=== PATIENT | female | born 1990 | race Caucasian/White ===

== ENCOUNTER 2021-03-26 11:52 | Emergency (ER) | payer OTHER ==
[2021-03-26 12:35] VITALS: BP 135/89; PULSE 80; TEMP 98.1; BMI 25.0
[2021-03-26 15:03] LABS: HCG,QUALITATIVE URINE Negative
[2021-03-26 15:04] LABS: EPI CELLS 5 /uL (0-25.1); HYALINE CASTS 0 /uL (0-3.1); URINE APPEARANCE CLEAR; URINE BACTERIA 147 /uL (0-1359); URINE BILIRUBIN NEGATIVE (NEGATIVE); URINE COLOR YELLOW; URINE GLUCOSE (UA) NEGATIVE (NEGATIVE); URINE KETONE NEGATIVE (NEGATIVE); URINE LEUK ESTERASE NEGATIVE (NEGATIVE); URINE NITRITE NEGATIVE (NEGATIVE); URINE PROTEIN NEGATIVE (NEGATIVE); URINE RBC 8 /uL (0-23.9); URINE UROBILINOGEN 0.2 mg/dL (0.2-1.0); URINE WBC 9 /uL (0-25.8)
== END 2021-03-26 15:36 | disposition home or self-care (01) ==
LOC: JER 11:52
DX: R35.0 Frequency of micturition (principal)
CPT/HCPCS: 81003; 84703; 87086; 99283-25

== ENCOUNTER 2022-05-16 04:26 | Day surgery (SDC) | payer OTHER ==
[2022-05-11 15:46] VITALS: BMI 28.7
[2022-05-16] MEDS ORDERED: MIDAZOLAM HCL 2 MG/2 ML SINGLE DOSE VIAL ONE (08:54)
[2022-05-16] MEDS ORDERED: ONDANSETRON 4 MG/2 ML VIAL IVPUSH PRN ×2 (09:09→10:36)
[2022-05-16] MEDS ORDERED: oxyCODONE HCL 5 MG TABLET PO PRN ×2 (09:09→10:36)
[2022-05-16] MEDS ORDERED: LACTATED RINGERS SOLUTION 1,000 ML IV SCH (09:15)
[2022-05-16] MEDS ORDERED: GLYCOPYRROLATE 0.2 MG/1 ML VIAL ONE (10:05)
[2022-05-16] MEDS ORDERED: DEXAMETHASONE SOD PHOSPHATE 4 MG/1 ML VIAL ONE (10:05)
[2022-05-16] MEDS ORDERED: NEOSTIGMINE METHYLSULFATE 0.5 MG/ML - 10 ML MDV ONE (10:05)
[2022-05-16] MEDS ORDERED: KETOROLAC TROMETHAMINE 30 MG/1 ML VIAL ONE (10:05)
[2022-05-16] MEDS ORDERED: LIDOCAINE HCL/PF 2% SDV 5ML VIAL ONE (10:05)
[2022-05-16] MEDS ORDERED: ONDANSETRON 4 MG/2 ML VIAL ONE (10:05)
[2022-05-16] MEDS ORDERED: LIDOCAINE HCL 4% TOPICAL SOLN (50 ML/BOTTLE) ONE (10:05)
[2022-05-16] MEDS ORDERED: PROPOFOL 40 ML ONE (10:27)
[2022-05-16] MEDS ORDERED: IBUPROFEN 600 MG TABLET (FP) PO PRN (10:36)
[2022-05-16] MEDS ORDERED: IBUPROFEN 800 MG/8 ML IJ IVPB PRN (10:36)
[2022-05-16] MEDS ORDERED: ELECTROLYTE-148 SOLN 1,000 ML IV SCH (10:45)
[2022-05-16 12:04] VITALS: RESP 16
[2022-05-16 12:50] VITALS: BP 117/77; PULSE 74; TEMP 97.5
[2022-05-16 14:59] LABS: HIV INTERPRETATION NEGATIVE (NEGATIVE)
== END 2022-05-16 13:50 | disposition home or self-care (01) ==
LOC: JASU-SURG 04:26
PROVIDERS: ATTEND Obstetrics & Gynecology
PROC: 0UT74ZZ Resection of Bilateral Fallopian Tubes, Percutaneous Endoscopic Approach (ICD-10-PCS; principal; 2022-05-16 09:00)
DX: Z30.2 Encounter for sterilization (principal)
CPT/HCPCS: 36415; 81025; 84460; 86704; 86705; 86708; 86709; 86780; 86803; 87340; 87389; 87517; 87522; 88302-TC; 94760